=== PATIENT | male | born 1960 | race Caucasian/White ===

== ENCOUNTER 2019-06-25 18:04 | Emergency (ER) | payer OTHER ==
[~2019-06-25] VITALS: Ht 165.1 cm; Wt 81.6 kg
[2019-06-25] MEDS ORDERED: METFORMIN (18:37)
[2019-06-25] MEDS ORDERED: LOSARTAN (18:38)
== END 2019-06-25 21:54 | disposition home or self-care (01) ==
LOC: ER 18:04
DX: R50.9 Fever, unspecified (principal)

== ENCOUNTER 2022-02-05 13:00 | Outpatient (CLI) | payer OTHER ==
[~2022-02-05 13:00] MED LIST: LOSARTAN; METFORMIN
== END 2022-02-05 14:00 | disposition home or self-care (01) ==
LOC: SONOGRAMA 13:00
DX: N20.0 Calculus of kidney (principal); N20.1 Calculus of ureter; N40.1 Benign prostatic hyperplasia with lower urinary tract symptoms; R35.1 Nocturia

== ENCOUNTER 2022-03-11 09:00 | Outpatient (CLI) | payer OTHER | END 2022-03-11 09:09 | disposition home or self-care (01) | LOC: TOM 09:00 | DX: N20.0 Calculus of kidney (principal); N20.1 Calculus of ureter; N40.1 Benign prostatic hyperplasia with lower urinary tract symptoms; R35.1 Nocturia ==

== ENCOUNTER 2022-12-03 10:20 | Outpatient (CLI) | payer OTHER | END 2022-12-03 10:29 | disposition home or self-care (01) | LOC: TOM 10:20 | PROVIDERS: ATTEND Physical Medicine & Rehabilitation | DX: M54.50 Low back pain, unspecified (principal); M51.37 Other intervertebral disc degeneration, lumbosacral region; M47.817 Spondylosis without myelopathy or radiculopathy, lumbosacral region | CPT/HCPCS: 72148 ==

== ENCOUNTER 2023-09-03 08:06 | Outpatient (CLI) | payer OTHER | END 2023-09-03 08:18 | disposition home or self-care (01) | LOC: SONOGRAMA 08:06 | DX: R10.13 Epigastric pain (principal) ==

== ENCOUNTER 2025-04-17 10:16 | Outpatient (CLI) | payer OTHER | END 2025-04-17 10:18 | disposition home or self-care (01) | LOC: RAD 10:16 | PROVIDERS: ATTEND Internal Medicine | DX: I11.9 Hypertensive heart disease without heart failure (principal) ==

== ENCOUNTER → 2025-06-25 | Outpatient (CLI) | payer OTHER | END | disposition home or self-care (01) | LOC: MRI 14:44 | DX: M54.59 Other low back pain (principal) | CPT/HCPCS: 72148 ==